=== PATIENT | male | born 1955 | race Caucasian/White ===

== ENCOUNTER 2024-09-07 17:15 | Observation (INO) | payer OTHER, SELFPAY ==
[2024-09-07] VITALS (7 sets, daily range): BP systolic 95–183; BP diastolic 76–156; BMI 30.5
--- NOTE | 2024-09-07 14:55 | ITS.CL.ICD ---
Facilities Painter - ICD
Implantable Cardioverter Defibrillator
Procedure Report:
Primary Physician: Dr Scott Brewer
Primary Hl7 Developer: Dr Abisai Mcguire
Procedure Date: 09/07/2024
Procedure:
1: Implantation of VIDEO GAME ENGINEER-D utilizing LBBAP pacing lead for conduction system pacing
2: Subclavian venography
Indication/Diagnosis:
1. LBBB with baseline QRS > 130 msec
2. CHF - NYHA class 2-3
3. LVEF < 35% despite maximally tolerated GDMT > 90 days
4. Symptomatic bradycardia with need for AVN blocking agents due to CM
5. Primary prevention SCD
HISTORY: Please see office H&P.
After informed consent was obtained, the patient was brought to the EP laboratory in a postabsorptive, nonsedated state. Peripheral IV access was established. Prophylactic antibiotics were administered prior to incision. Continuous ECG, blood
pressure, and pulse oximetry were initiated. Cardioversion patch electrodes were placed on the patient's chest and back. A grounding patch was applied to the skin. Sedation was administered by anesthesia.
In order to define the extrathoracic portion of the subclavian vein and exclude significant venous obstruction or anomalous anatomy, subclavian venography was performed prior to the procedure. Using the patient's left peripheral IV, contrast was
injected and images were recorded. The left subclavian vein and SVC were found to be widely patent.
The left chest was prepared and draped in a sterile fashion. A 'time out' was called and confirmed. Local anesthesia was injected in the subcutaneous tissue in the infraclavicular area. An incision was made medial to the deltopectoral groove and
parallel to the clavicle. The subcutaneous tissue was dissected the level of the prepectoral fascia. A subcutaneous pocket was created. Under fluoroscopic guidance and with the assistance of the images from the venogram, three separate
venipunctures were made using micropuncture and modified Seldinger technique. These was performed in the extrathoracic portion of the subclavian vein. Guidewires were passed. Peel-away sheaths were placed, and were used to advance the leads into
the circulation.
Using fluoroscopic guidance, the leads were positioned. The RV lead was advanced to the RV outflow tract. Ventricular ectopy was recorded. Images were taken in [place]LS[place] and [place] views to ensure appropriate lead placement. The lead tip was subsequently
positioned in the RV apex. Adequate sensing and pacing parameters were found, and no diaphragmatic stimulation was seen with high-output pacing.
Fluoroscopy was used to determine likely anatomic site for left bundle branch pacing. The eedentronic C315 sheath was used to deliver the Medtronic 3830 Selectsecure pacing lead with the helix exposed just exposed from the sheath tip during continuous
monitoring when pacemapping the septum during gentle clockwise rotation to obtain a paced QRS morphology of a W pattern in lead V1. Once the suspected optimal site was identified, lead deployment was performed with several rapid rotations as paced
QRS morphology was intermittently monitored until a paced QRS complex in lead V1 demonstrated development of an R wave (qR or rSR). Unipolar pacing impedance dropped by approximately 100 ohms suggesting it had reached the left ventricular
subendocardial. Stable VEgm injury current is present throughout lead position and at end of case. Final unipolar pacing impedance is 1100 Ohms. Unipolar pacing threshold is stable at 0.5 V @ 0.4 ms. The patient had pre-existing left bundle branch
block at baseline. Final conduction system paced QRS complex duration is 113 ms, LVAT is 104 ms, and peak V5 -> peak V1 timing is 44 ms. The C315 sheath was slit under fluoroscopy ensuring lead position and stability.
Next, the right atrial lead was positioned in the right atrial appendage. Adequate sensing and pacing parameters were found, and no diaphragmatic stimulation was seen with high-output pacing. All sheaths were split, and the leads were secured to
the fascia with Ethibond ties.
The pocket was flushed with antibiotic solution and hemostasis was assured. The generator was connected to the leads and placed inside the pocket and sutured in place. Antibiotic envelope was used. Floseal was applied. The wound was closed with 3
running layers of absorbable suture, and steri-strips were applied. Defibrillator function testing was deferred.
Fluoroscopy was used to guide lead placement. Fluoroscopic exposure 16.2 min and 40.96 mGy.
Following the procedure, the patient was taken to the recovery area in stable condition. A chest x-ray was obtained as routine post-procedure care.
IMPLANTS:
Device: Medtronic Model CFGM3R7, SN: [id number]
RA: Medtronic, Model 5076, SN: [id number]
RV ICD: Medtronic, Model 6935, SN: [id number]
RV LBBAP: Medtronic 3830, SN:[id number], Interventricular septum at LBB
DEVICE TESTING:
RA: Sensing 2.0 mV, Capture 0.5 V @0.4 msec, Impedance 456 ohms
RV (ICD lead): Sensing 11.5 mV, Capture 0.5 V @0.4 msec, Impedance 665 ohms, HVB 70 ohm
RV (LBBAP lead): Sensing 12.0 mV, Capture 0.25 V @0.4 msec, Impedance 722 ohms
FINAL PROGRAMMING
Sergio Parameters: DDD with 50 to 130 ppm
Tachy Parameters: 150�167 monitor, 167�188 VT 1 zone with iATP, 188 and greater VF zone ATP with shocks
COMPLICATIONS:
There were no complications.
CONCLUSIONS:
1: Successful implantation of primary prevention VIDEO GAME ENGINEER-D utilizing LBBAP pacing lead for conduction system pacing
2: Venogram
RECOMMENDATIONS:
- Admit
- [facility] in AM.
- IV antibiotics while the patient is admitted.
- OK to resume home medications as indicated
- Pressure dressing to be removed in AM, aquacell to remain until wound check
- Follow-up will be arranged in the office in 7-10 days post-discharge for incision check
- If patient and site stable in AM, OK to resume OAC 09/08/2024 PM
Tee Woodruff DO, FACC, RS
Clinical Cardiac Supervisor Denture Department
cc: Dr Scott Brewer, Dr Abisai Mcguire
--- NOTE | 2024-09-07 18:00 | PTCARENOTE ---
Rec'd report from Deloris in the EP lab; Rec'd the pt AAOx3, somewhat agitated on arrival to the . Pt stated 'he wasn't told he'd be strapped down the bed & I'm not happy about this'; this RN explained about the LUE immobilizer the pt has in
place post-device insertion & that he 'isn't strapped to the bed'. After offering emotional support & explaining the plan of care for the night & in the AM, pt appeared much calmer & receptive. Pt reports 2/10 'mild L shoulder discomfort'; Pt
declining anything for pain at this time. This RN explained that there is an order for PRN Tylenol for pain & to just let us know if he requires any. Pt's VSS stable w/HR 80 & BP on arrival 107/76. Pt is V-paced on telemetry monitoring. L chest wall
insertion site w/post-op dressing C/D/I w/no signs or symptoms of bleeding or hematoma. Pt's & daughter at bedside; assisting pt w/ordering dinner.
reported to this RN that she brought pt's CPAP from home. Order rec'd from Dr Woodruff for pt to use his own while here. Resp notified. Pt w/call mcdonald within reach & no addtl needs at this time.
[2024-09-07] MEDS: COZAAR 25 MG PO (18:25)
[2024-09-07] MEDS: ANESTHETIC LOZENGE 1 LOZENGE PO (18:25)
[2024-09-07] MEDS: VITAMIN D3 (cholecalciferol) 125 MCG PO (18:25)
[2024-09-07] MEDS: THERAGRAN 1 TABLET PO (18:26)
[2024-09-07] MEDS: COREG 3.125 MG PO (20:58)
[2024-09-07] MEDS: TYLENOL 650 MG PO (20:58)
[2024-09-07] MEDS: LIPITOR 80 MG PO (21:52)
[2024-09-07] MEDS: ANCEF 5 IV (21:52)
[2024-09-08 03:02] VITALS: BP 108/68
[2024-09-08] MEDS: TYLENOL 650 MG PO (03:09)
[2024-09-08 03:24] VITALS: BMI 30.2
--- NOTE | 2024-09-08 03:33 | PTCARENOTE ---
Pt Vpaced on monitor VSS. Pt c/o mild BARROSO. Tylenol PRN given. Left chest dsg CDI. Pt using own CPAP. Ambulates x 1 assist in the room. Call mcdonald within reach
[2024-09-08 03:34] LABS: Hematocrit 45.1 % (39.0-52.0); Hemoglobin 15.7 g/dL (13.0-18.0); Mean Corp Hgb Conc. 34.8 g/dL (33.0-37.0); Mean Corpuscular Volume 93.0 fL (80.0-94.0); Platelet Count 153 10^3/uL (130-400); Red Cell Dist. Width 13.1 % (11.5-14.5)
[2024-09-08 03:53] LABS: Blood Urea Nitrogen 14 mg/dl (9-20); Calcium 9.6 mg/dl (8.4-10.2); Carbon Dioxide 25 mmol/L (22-30); Chloride 108 mmol/L (98-107); Estimated Creatinine Clearance 89 ml/min; Glucose 95 mg/dl (70-99); Potassium 4.4 mmol/L (3.5-5.1); Sodium 141 mmol/L (135-145); eGFR > 60.00
[2024-09-08] MEDS: ANCEF 5 IV (05:33)
--- NOTE | 2024-09-08 07:08 | W.PN.CARDCBS ---
Addendum entered and electronically signed by Tee Woodruff DO 09/08/24 08:23:
I saw and examined the patient.
The Appeals Analyst's note was reviewed and I agree with the note.
Comment:
Patient is a pleasant 69-year-old male with a past medical history significant for CAD with prior CABG, mixed ischemic nonischemic cardiomyopathy, heart failure with reduced ejection fraction NYHA II-III symptoms, left bundle branch block, factor V
Leiden, sleep apnea on CPAP, hypertension, hyperlipidemia, symptomatic bradycardia who underwent primary prevention BOOK REVIEWER-D (Medtronic, conduction system) placement on 09/07/2024. Patient resting comfortably in bed without complaint. Patient denies
any chest pain, shortness of breath, lightheadedness, dizziness, or weakness. Patient reports mild tenderness at the site as well as mild shoulder discomfort but improved following pressure dressing removal.
GENERAL: no acute distress
EYE: sclera anicteric
NECK: Supple, no JVD, no carotid bruit appreciated
ENT: normal nose, moist mucosal membranes
CARDIAC: Regular rate and rhythm, +S1/S2, no murmur, rubs, or gallops
CHEST/PULMONARY: Normal effort, clear breath sounds
ABDOMEN: Soft, without focal tenderness or distention
NEUROLOGICAL: Alert and oriented x3
SKIN: Warm and dry, no rash; Left ACW implant site pressure dressing removed and underlying Aquacel in place without hematoma or drainage
PSYCH: Normal and appropriate interaction.
Telemetry a sensed V pace
EKG a sensed V paced
A/P as below
Patient doing well status post BOOK REVIEWER-D implant for primary prevention.
Chest x-ray no pneumothorax
Device interrogation by [employer] demonstrate stable device sensing, pacing, lead impedances, battery
Device programming has AV delay shortened to improve LV only pacing by conduction system lead (current AV delay set at 50 ms, this lends itself to a more slurred pattern appearance on EKG however patient is conduction system pacing prior to [place]
conduction)
Continue current medical therapy, up titration of beta-toni per primary deckhand crab boat as patient no longer bradycardic
Okay to resume oral anticoagulation on 09/08/2024
Incision check scheduled, follow-up with Dr. Mcguire as scheduled after that
Addendum entered and electronically signed by Ruthie Roque PA-C 09/08/24 08:19:
[id number]
Original Note:
Today's Communication / Plan
-
D/C to home
Initial incision check and device care through the [facility] cardiology office [facility] and then long-term follow-up will continue to be with Dr. Mcguire
Impression / Plan
-
PCP: Dr. Scott Brewer
Card: Dr. Mcguire
EP: Dr. Woodruff
Impression:
s/p Medtronic BOOK REVIEWER�D 09/07/24
ICM
CAD status post CABG in 2004
Symptomatic bradycardia
Chronic HFrEF
Factor V Leiden deficiency
MELVA on CPAP
H/L iliac artery aneurysm
HTN
Hyperlipidemia
Echo 05/01/2024: EF 20 to 25%
Plan:
-Patient had implantation of a Medtronic BOOK REVIEWER�D and left ECW without hematoma or ecchymosis following pressure dressing removal. Aquacel dressing remains in place without obvious drainage
- Patient follows with Dr. Mcguire, but will have incision check and initial device follow-up at the [facility] cardiology [facility]
- Outpatient dose of Xarelto 20 mg daily to resume tonight
- Outpatient doses of Coreg, spironolactone and losartan plus Jardiance should resume tonight
- Patient is stable for discharge to home
Progress Note - Mathematical Statistician
Subjective
Date of Service: September 08, 2024
Feels well, some pain, but no hematoma
Objective
Labs:
09/08/24 03:08
09/08/24 03:08
Labs
Hgb 15.7 g/dL (13.0-18.0) 09/08/24 03:08
Hct 45.1 % (39.0-52.0) 09/08/24 03:08
Plt Count 153 10^3/uL (130-400) 09/08/24 03:08
Sodium 141 mmol/L (135-145) 09/08/24 03:08
Potassium 4.4 mmol/L (3.5-5.1) 09/08/24 03:08
BUN 14 mg/dl (9-20) 09/08/24 03:08
Creatinine 0.8 mg/dL (0.7-1.3) 09/08/24 03:08
Glucose 95 mg/dl (70-99) 09/08/24 03:08
Vital Signs and I&O:
Vital Signs
Temp Pulse Resp BP Pulse Ox
97.9 F 67 18 108/68 97
09/08/24 07:00 09/08/24 07:00 09/08/24 07:00 09/08/24 03:02 09/08/24 07:00
Vital Signs
Temp Pulse Resp BP Pulse Ox
97.9 F 67 18 108/68 97
09/08/24 07:00 09/08/24 07:00 09/08/24 07:00 09/08/24 03:02 09/08/24 07:00
Intake & Output
09/06/24 09/07/24 09/08/24 09/09/24
06:59 06:59 06:59 06:59
Intake Total 1760 / 1760
Output Total 900 / 900
Balance 860 / 860
Physical Exam
Physical Exam
GEN: NAD. AAOx3
HEENT: EOMI
LUNGS: RA. Clear anterolaterally without wheeze
CV: V paced on tele. Left ACW implant site pressure dressing removed and underlying Aquacel in place without hematoma or drainage
[2024-09-08] MEDS: ALDACTONE 12.5 MG PO (08:03)
[2024-09-08] MEDS: COREG 3.125 MG PO (08:03)
[2024-09-08] MEDS: FARXIGA 10 MG PO (08:04)
--- NOTE | 2024-09-08 08:16 | W.DS.TRANS ---
DC Summary - Director Marketing
-
Discharge Instructions:
Discharge Diagnosis/Procedures Medtronic WELDER FITTER ARC-D implant for cardiomyopathy
Diet 2 Gram Sodium
Activity Other activity
Driving Restrictions No driving for 1 week
Bathing Restrictions OK to Shower
Specialty Instructions Weigh Daily
Instructions:
Stand-Alone Forms: DC Inst - Implanted Device
Changes to Home Medications: No
Discharge Medications:
DC Medications w/original date entered in [facility] [place]
atorvastatin 80 mg tablet 80 mg PO HS 09/07/24
carvedilol 3.125 mg tablet 3.125 mg PO Q12H 09/07/24
cholecalciferol (vitamin D3) 125 mcg (5,000 unit) tablet (Vitamin D3) 125 mcg PO QPM 09/07/24
empagliflozin 10 mg tablet (Jardiance) 10 mg PO DAILY 09/07/24
losartan 25 mg tablet 25 mg PO QPM 09/07/24
multivitamin 1 tab PO QPM 09/07/24
rivaroxaban 20 mg tablet (Xarelto) 20 mg PO QPM 09/07/24
spironolactone 25 mg tablet 12.5 mg PO DAILY 09/07/24
acetaminophen 325 mg tablet 650 mg (2 x 325 mg) PO Q4HPRN PRN Pain #14 tabs 09/08/24
Home Medication Changes
Pending Results: No
--- NOTE | 2024-09-08 09:34 | PTCARENOTE ---
Assumed care of pt from maintenance supervisor 2nd shift RN. ETELVINA3. Vpaced on tele. VSS. LCW dressing CDI. Assessment documented. Discharge instructions reviewed with at bedside. PIV removed. Pt escorted to private vehicle by PCT via wheelchair for transport home.
== END 2024-09-08 09:37 | disposition home or self-care (01) ==
LOC: IVU 17:15
PROVIDERS: ADMITTING PHYSICIAN Internal Medicine Cardiovascular Disease; FAMILY PHYSICIAN Family Medicine
PROC: 0JH609Z Insertion of Cardiac Resynchronization Defibrillator Pulse Generator into Chest Subcutaneous Tissue and Fascia, Open Approach (ICD-10-PCS; 2024-09-07)
PROC: 02H63KZ Insertion of Defibrillator Lead into Right Atrium, Percutaneous Approach (ICD-10-PCS; 2024-09-07)
PROC: 02HK3KZ Insertion of Defibrillator Lead into Right Ventricle, Percutaneous Approach (ICD-10-PCS; 2024-09-07)
DX: I50.22 Chronic systolic (congestive) heart failure (principal); I44.7 Left bundle-branch block, unspecified; R00.1 Bradycardia, unspecified; I25.5 Ischemic cardiomyopathy; I42.8 Other cardiomyopathies; I25.10 Atherosclerotic heart disease of native coronary artery without angina pectoris; I11.0 Hypertensive heart disease with heart failure; D68.51 Activated protein C resistance; G47.33 Obstructive sleep apnea (adult) (pediatric); I72.3 Aneurysm of iliac artery; E78.5 Hyperlipidemia, unspecified; Z95.1 Presence of aortocoronary bypass graft
CPT/HCPCS: 33249; 71045; 80048; 85027; 93005; C1769; C1777; C1882; C1887; C1892; C1898; G0378; Q9967

== ENCOUNTER 2024-10-21 14:58 | Emergency (ER) | payer OTHER, SELFPAY ==
[2024-10-21 15:05] VITALS: BP 124/89
[2024-10-21 15:24] LABS: Hematocrit 45.3 % (39.0-52.0); Hemoglobin 15.9 g/dL (13.0-18.0); Mean Corp Hgb Conc. 35.1 g/dL (33.0-37.0); Mean Corpuscular Volume 91.0 fL (80.0-94.0); Nucleated Red Blood Cells % 0 % (-); Platelet Count 165 10^3/uL (130-400); Red Cell Dist. Width 12.5 % (11.5-14.5)
[2024-10-21 15:33] LABS: INR 1.07; PT 14.2 Sec (11.4-14.6)
[2024-10-21 15:37] VITALS: BP 114/97
[2024-10-21 15:39] VITALS: BMI 30.3
[2024-10-21 15:50] LABS: ALT (SGPT) 34 U/L (0-50); AST (SGOT) 29 U/L (17-59); Albumin 5.0 g/dl (3.5-5.0); Alkaline Phosphatase 22 U/L (38-126); Blood Urea Nitrogen 19 mg/dl (9-20); Calcium 10.2 mg/dl (8.4-10.2); Carbon Dioxide 25 mmol/L (22-30); Chloride 107 mmol/L (98-107); Estimated Creatinine Clearance 67 ml/min; Glucose 101 mg/dl (70-99); Potassium 4.5 mmol/L (3.5-5.1); Sodium 139 mmol/L (135-145); Total Protein 7.7 g/dl (6.3-8.2); eGFR > 60.00
[2024-10-21 16:00] VITALS: BP 104/84
[2024-10-21 17:00] VITALS: BP 108/54
[2024-10-21 17:17] VITALS: BP 108/54
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
--- NOTE | 2024-10-21 18:27 | EDRN ---
Reviewed discharge instructions with patient. Verbalized understanding. Ambulated with steady gait to the lobby.
[2024-10-21 18:28] VITALS: BP 108/54
== END 2024-10-21 18:20 | disposition home or self-care (01) ==
LOC: EMR 14:58
PROVIDERS: Student in an Organized Health Care Education/Training Program; EMERGENCY PHYSICIAN Emergency Medicine; FAMILY PHYSICIAN Family Medicine; OTHER PHYSICIAN Internal Medicine Cardiovascular Disease
DX: I47.10 Supraventricular tachycardia, unspecified (principal); Z45.02 Encounter for adjustment and management of automatic implantable cardiac defibrillator; S40.212A Abrasion of left shoulder, initial encounter; S60.512A Abrasion of left hand, initial encounter; S80.02XA Contusion of left knee, initial encounter; S80.01XA Contusion of right knee, initial encounter; R51.9 Headache, unspecified; Y09 Assault by unspecified means; W01.0XXA Fall on same level from slipping, tripping and stumbling without subsequent striking against object, initial encounter; I11.0 Hypertensive heart disease with heart failure; I50.9 Heart failure, unspecified; I25.10 Atherosclerotic heart disease of native coronary artery without angina pectoris; D68.51 Activated protein C resistance; E78.5 Hyperlipidemia, unspecified; Z79.01 Long term (current) use of anticoagulants; Z95.1 Presence of aortocoronary bypass graft; Z87.891 Personal history of nicotine dependence
CPT/HCPCS: 99284; 70450; 71250; 73030; 80053; 85025; 85610; 93005